=== PATIENT | male | born 1995 | race Caucasian/White ===

== ENCOUNTER 2017-10-05 14:06 | Emergency (ER) | payer OTHER, BC, MEDICAID ==
[~2017-10-05] VITALS: Ht 188 cm; Wt 83.9 kg
[2017-10-05] MEDS ORDERED: BACLOFEN10 MG PO (14:56)
[2017-10-05] MEDS ORDERED: KETOROLAC TROME10 MG PO (14:56)
== END 2017-10-05 15:36 | disposition home or self-care (01) ==
LOC: ED 14:06
DX: M99.02 Segmental and somatic dysfunction of thoracic region (principal); M62.830 Muscle spasm of back
CPT/HCPCS: 71046; 99283